=== PATIENT | male | born 1965 | race Caucasian/White ===

== ENCOUNTER 2021-06-12 08:36 | Emergency (ER) | payer BC ==
[2021-06-12 09:13] VITALS: BP 124/78; PULSE 102; TEMP 98.2; BMI 30.9
[2021-06-13 08:06] LABS: SARS-CoV-2 NAA Not Detected (Not Detected)
== END 2021-06-12 11:51 | disposition home or self-care (01) ==
LOC: JER 08:36
DX: J36 Peritonsillar abscess (principal)
CPT/HCPCS: 87070; 87651; 87804; 99283-25; C9803; U0003; U0005

== ENCOUNTER 2021-07-24 23:40 | Emergency (ER) | payer BC ==
[2021-07-24 23:48] VITALS: BP 156/81; PULSE 87; TEMP 97.9; BMI 31.1
[2021-07-25] MEDS ORDERED: FLUORESCEIN NA 1 EA STRIP OS ONE (00:23)
[2021-07-25] MEDS ORDERED: TETRACAINE 0.5% HCL 0.6ML DROPPER.BOTTLE OS ONE (00:23)
[2021-07-25] MEDS ORDERED: FLUORESCEIN NA 1 EA STRIP ONE (00:24)
[2021-07-25] MEDS ORDERED: TETRACAINE 0.5% OPHTH SOLN 2 ML BOTTLE ONE (00:25)
[2021-07-25] MEDS ORDERED: CIPROFLOXACIN 0.3% EYE DROPS 5 ML BOTTLE OD STA (00:40)
[2021-07-25] MEDS ORDERED: CIPROFLOXACIN 0.3% EYE DROPS 5 ML BOTTLE ONE (00:43)
== END 2021-07-25 01:07 | disposition home or self-care (01) ==
LOC: JER 23:40
DX: H10.31 Unspecified acute conjunctivitis, right eye (principal)
CPT/HCPCS: 99283-25

== ENCOUNTER 2023-10-24 04:28 | Day surgery (SDC) | payer BC ==
[2023-10-17 10:03] VITALS: BMI 30.2
[2023-10-24 09:50] VITALS: TEMP 97.7
[2023-10-24 10:25] VITALS: BP 135/85; PULSE 64; RESP 19
== END 2023-10-24 11:23 | disposition home or self-care (01) ==
LOC: JASU-ENDO 04:28
PROVIDERS: ATTEND Internal Medicine Gastroenterology
PROC: 0DBL8ZX Excision of Transverse Colon, Via Natural or Artificial Opening Endoscopic, Diagnostic (ICD-10-PCS; 2023-10-24)
PROC: 0DBP8ZX Excision of Rectum, Via Natural or Artificial Opening Endoscopic, Diagnostic (ICD-10-PCS; 2023-10-24)
PROC: 0DB38ZX Excision of Lower Esophagus, Via Natural or Artificial Opening Endoscopic, Diagnostic (ICD-10-PCS; 2023-10-24)
PROC: 0DB78ZX Excision of Stomach, Pylorus, Via Natural or Artificial Opening Endoscopic, Diagnostic (ICD-10-PCS; 2023-10-24)
PROC: 0DB68ZX Excision of Stomach, Via Natural or Artificial Opening Endoscopic, Diagnostic (ICD-10-PCS; 2023-10-24)
PROC: 0DBK8ZX Excision of Ascending Colon, Via Natural or Artificial Opening Endoscopic, Diagnostic (ICD-10-PCS; principal; 2023-10-24 09:00)
DX: D12.2 Benign neoplasm of ascending colon (principal); D12.3 Benign neoplasm of transverse colon; K51.20 Ulcerative (chronic) proctitis without complications; K21.00 Gastro-esophageal reflux disease with esophagitis, without bleeding; K57.30 Diverticulosis of large intestine without perforation or abscess without bleeding; Z87.19 Personal history of other diseases of the digestive system; I10 Essential (primary) hypertension
CPT/HCPCS: 88305-TC; 88342-TC

== ENCOUNTER 2024-02-03 21:42 | Emergency (ER) | payer BC, OTHER ==
[2024-02-03 21:55] VITALS: BP 126/84; PULSE 92; RESP 18; TEMP 98.3; BMI 29.9
[2024-02-03] MEDS ORDERED: IBUPROFEN 600 MG TABLET (FP) PO ONE (23:35)
[2024-02-03] MEDS ORDERED: CYCLOBENZAPRINE HCL 10 MG TABLET (FP) ONE (23:35)
[2024-02-03] MEDS: CYCLOBENZAPRINE HCL 10 MG TABLET (FP) PO ONE (23:38)
[2024-02-03] MEDS: IBUPROFEN 600 MG TABLET (FP) PO ONE (23:38)
[2024-02-04 05:43] LABS: HIV INTERPRETATION NEGATIVE (NEGATIVE)
== END 2024-02-04 01:49 | disposition home or self-care (01) ==
LOC: JERFT 21:42
DX: M54.2 Cervicalgia (principal); M25.512 Pain in left shoulder; M25.532 Pain in left wrist; M54.50 Low back pain, unspecified; V43.92XA Unspecified car occupant injured in collision with other type car in traffic accident, initial encounter; Y92.410 Unspecified street and highway as the place of occurrence of the external cause
CPT/HCPCS: 36415; 72125-TC; 73030-TC-LT-FY; 73110-TC-LT-FY; 86803; 87389; 87522; 99285-25